=== PATIENT | male | born 1970 | race Caucasian/White ===

== ENCOUNTER 2021-12-08 16:07 | Emergency (ER) | payer OTHER ==
[2021-12-08] MEDS ORDERED: Ketorolac Tromethamine 30 MG/ML VIAL ONE (17:39)
== END 2021-12-08 17:57 | disposition home or self-care (01) ==
LOC: CSHERS 16:07
DX: M54.32 Sciatica, left side (principal); F17.210 Nicotine dependence, cigarettes, uncomplicated
CPT/HCPCS: 96372; 99283; J1885

== ENCOUNTER 2025-01-26 14:37 | Emergency (ER) | payer OTHER | END 2025-01-26 16:42 | LOC: CSHERS 14:37 | DX: Z53.21 Procedure and treatment not carried out due to patient leaving prior to being seen by health care provider (principal) ==